=== PATIENT | female | born 1985 | race Caucasian/White ===

== ENCOUNTER 2017-05-22 05:32 | Emergency (ER) | payer SELFPAY ==
[~2017-05-22] VITALS: Ht 162.6 cm; Wt 63.8 kg
[2017-05-22] MEDS ORDERED: XYLOCAINE VISC100 ML PO (07:36)
[2017-05-22] MEDS ORDERED: KEFLEX500 MG PO (07:36)
[2017-05-22 07:54] VITALS: BP 130/50
== END 2017-05-22 07:55 | disposition home or self-care (01) ==
LOC: EME 05:32
DX: J02.9 Acute pharyngitis, unspecified (principal); I88.9 Nonspecific lymphadenitis, unspecified; F17.200 Nicotine dependence, unspecified, uncomplicated; Z88.5 Allergy status to narcotic agent
CPT/HCPCS: 99281; 99284